=== PATIENT | female | born 1980 | race Two or more races ===

== ENCOUNTER 2019-06-06 03:05 | Emergency (ER) | payer MEDICAID ==
--- NOTE | 2019-06-06 03:29 | ED Physician Chart ---
ED Chief Complaint/HPI - Patient Information Date Seen:: 06/06/19 Time Seen:: 03:44 Chief Complaint:: abdominal pain History of Present Illness:: this is a 39 yo female with epigastric pain, nausea and vomiting that started suddenly this am. she ate a meat and cheese sandwich last night. she denies , Allergies:: Allergies Allergy/AdvReac Type Severity Reaction Status Date / Time No Known Allergies Allergy Verified 06/06/19 03:11 Vitals:: Vital Signs - 8 hr 06/06/19 03:10 Temp 98.2 F HR 72 RR 20 BP 130/78 O2 Sat % 98 Historian:: Patient, Family Member (daughter) Review:: Nurse's Note Reviewed, Old Chart Reviewed ED Review of Systems - Review of Systems General/Constitutional: No fever, No chills, No weight loss, No weakness, No diaphoresis, No edema, No loss of appetite Skin: No skin lesions, No rash, No bruising Head: No headache, No light-headedness Eyes: No loss of vision, No pain, No diplopia ENT: No earache, No nasal drainage, No sore throat, No tinnitus Neck: No neck pain, No swelling, No thyromegaly, No stiffness, No mass noted Cardio Vascular: No chest pain, No palpitations, No PND, No orthopnea, No edema Pulmonary: No SOB, No cough, No sputum, No wheezing GI: Nausea, Vomiting, No diarrhea, Pain (epigastric), No melena, No hematochezia , No constipation, No hematemesis G/U: No dysuria, No frequency, No hematuria Musculoskeletal: No bone or joint pain, No back pain, No muscle pain Endocrine: No polyuria, No polydipsia Psychiatric: No prior psych history, No depression, No anxiety, No suicidal ideation Hematopoietic: No bruising, No lymphadenopathy Allergic/Immuno: No urticaria, No angioedema Neurological: No syncope, No focal symptoms, No weakness, No paresthesia, No headache, No seizure, No dizziness, No confusion, No vertigo ED Past Medical History - Past Medical History Obtainable: No Past Medical History: No significant medical hx Family History: None Social History: Non Smoker, No Alcohol, No Drug Use, Surgical History: (four c-sections) Family Medical History - Family Member Mother History Unknown: Yes Ethnicity: Living Status: Still Living Hx Family Cancer: No Hx Family Coronary Artery Disease: No Hx Family Congestive Heart Failure: No Hx Family Hypertension: No Hx Family Stroke: No Hx Family Diabetes: No Hx Family Seizures: No Hx Family Dementia: No Hx Family AIDS: No Hx Family HIV: No Hx Family COPD: No Hx Family Hepatitis: No Hx Family Psychiatric Problems: No Hx Family Tuberculosis: No ED Physical Exam - Physical Examination General/Constitutional: Awake, Well-developed, well-nourished, Alert, No distress, GCS 15, Non-toxic appearing, Ambulatory Head: Atraumatic Eyes: Lids, conjuctiva normal, PERRL, EOMI Skin: Nl inspection, No rash, No skin lesions, No ecchymosis, Well hydrated, No lymphadenopathy ENMT: External ears, nose nl, Nasal exam nl, Lips, teeth, gums nl Neck: Nontender, Full ROM w/o pain, No JVD, No nuchal rigidity, No bruit, No mass, No stridor Respiratory: Nl effort/Exclusion, Clear to Auscultation, No Wheeze/Rhonchi/Rales Cardio Vascular: RRR, No murmur, gallop, rubs, NL S1 S2 GI: No tenderness/rebounding/guarding (there is tenderness in the upper abdomen) , No organomegaly, No hernia, Normal BS's, Nondistended, No mass/bruits, No McBurney tenderness : No CVA tenderness Extremities: No tenderness or effusion, Full ROM, normal strength in all extremities, No edema, Normal digits & nails Neuro/Psych: Alert/oriented, DTR's symmetric, Normal sensory exam, Normal motor strength, Judgement/insight normal, Mood normal, Normal gait, No focal deficits Misc: Normal back, No paraspinal tenderness ED Assessment - Assessment General Assessment: gastritis gallstones ED Septic Shock - . Is Septic Shock (SBP<90, OR Lactate>4 mmol\L) present?: No - <6hrs of presentation: Vital Signs: Vital Signs - 8 hr 06/06/19 03:10 Temp 98.2 F HR 72 RR 20 BP 130/78 O2 Sat % 98 ED Reassessment (Disposition) - Reassessment Reassessment Condition:: Improved - Diagnosis Diagnosis:: gallstones - Aftercare/Follow up Instructions Aftercare/Follow-Up Instructions:: Counseled pt regarding lab results/diagnosis & need follow up, Refer to Discharge Instructions, Counseled pt & family regarding lab results/diagnosis & need follow up Medication Prescribed:: ethan amado - Patient Disposition Discharge/Transfer:: Home Condition at Disposition:: Improved
[2019-06-06] MEDS ORDERED: Sodium Chloride 0.9% 1,000 ML IV ONE (03:37)
[2019-06-06] MEDS ORDERED: Haloperidol Lactate 5 mg/mL 1mL Vial IVP ONE (03:48)
[2019-06-06 03:51] LABS: URINE SOURCE CLEAN C
[2019-06-06 04:02] LABS: % BASOPHILS 0.4 % (0.0-2.0); % EOSINOPHILS 1.1 % (0.0-5.0); % MONOCYTES 8.7 % (2.0-10.0); % NEUTROPHILS 69.8 % (40.0-80.0); EOSINOPHILE ABSOLUTE 0.1 Th/cmm (0.1-0.4); HEMATOCRIT 36.4 % (41.0-60); HEMOGLOBIN 12.2 gm/dL (12-16); LYMPHOCYTE ABSOLUTE 1.8 Th/cmm (1.5-3.0); MEAN CELL VOLUME 79.2 fl (81-100); MEAN CORPUSCULAR HEMOGLOBIN 26.6 pg (27.0-31.0); MEAN CORPUSCULAR HGB CONC 33.7 pg (28.0-36.0); MONOCYTE ABSOLUTE 0.8 Th/cmm (0.3-1.0); NEUTROPHILE ABSOLUTE 6.5 Th/cmm (1.8-8.0); PLATELET COUNT 293 Th/cmm (150-400); RED BLOOD COUNT 4.59 Mil/cmm (3.80-5.10); WHITE BLOOD COUNT 9.2 Th/cmm (4.8-10.8)
[2019-06-06 04:02] LABS: URINE BILIRUBIN NEGATIVE (NEGATIVE); URINE BLOOD TRACE (NEGATIVE); URINE GLUCOSE (UA) NEGATIVE (NEGATIVE); URINE KETONE NEGATIVE (NEGATIVE); URINE LEUKOCYTE ESTERASE NEGATIVE (NEGATIVE); URINE MICROSCOPIC INDICATED? YES; URINE NITRATE NEGATIVE (NEGATIVE); URINE PH 5.5 (4.6 - 8.0); URINE PROTEIN NEGATIVE (NEGATIVE); URINE UROBILINOGEN 0.2 E.U./dL (0.2 - 1.0)
[2019-06-06 04:23] LABS: URINE CLARITY CLEAR (CLEAR); URINE COLOR YELLOW
[2019-06-06 04:24] LABS: URINE EPITHELIAL CELLS NONE SEEN /lpf (FEW); URINE RBC 0-2 /hpf (0-5); URINE WBC 0-2 /hpf (0-5)
[2019-06-06 04:26] LABS: URINE BACTERIA NONE SEEN /hpf (NONE SEEN)
[2019-06-06 04:27] LABS: AMPHETAMINE URINE NEGATIVE (NEGATIVE); BARBITURATES URINE NEGATIVE (NEGATIVE); BENZODIAZEPINES QUAL URINE NEGATIVE (NEGATIVE); CANNABINOID THC NEGATIVE (NEGATIVE); COCAINE METABOLITE QUAL URINE NEGATIVE (NEGATIVE); METHADONE URINE NEGATIVE (NEGATIVE); METHAMPHETAMINES QUAL URINE NEGATIVE (NEGATIVE); OPIATES (MORPHINE) QUAL. URINE NEGATIVE (NEGATIVE); PHENCYCLIDINE (PCP) URINE NEGATIVE (NEGATIVE); TRICYCLICS (TCA) QUAL. URINE NEGATIVE (NEGATIVE)
[2019-06-06 05:04] LABS: ALB/GLOB RATIO 1.2 (1.0-1.8); ALBUMIN 4.1 gm/dL (3.7-5.3); ALKALINE PHOSPHATASE 67 U/L (34-104); AMYLASE SERUM 58 U/L (29-103); ANION GAP 12.7 (7.0-16.0); BILIRUBIN,TOTAL 0.2 mg/dL (0.3-1.0); BUN - UREA NITROGEN 14 mg/dL (7-25); CARBON DIOXIDE 20.9 mEq/L (21.0-31.0); CHLORIDE 106 mEq/L (98-107); CREATININE - SERUM 0.5 mg/dL (0.6-1.2); GFR AFRICAN-AMERICAN > 60.0 ml/min (>90); GFR NON AFRICAN-AMERICAN > 60.0 ml/min; GLUCOSE 101 mg/dL (70-105); LIPASE 46 U/L (11-82); POTASSIUM SERUM 3.6 mEq/L (3.5-5.1); SGOT 21 U/L (13-39); SGPT/ALT 32 U/L (7-52); SODIUM SERUM 136 mEq/L (136-145); TOTAL PROTEIN,SERUM 7.4 gm/dL (6.0-8.3)
[2019-06-06 06:33] LABS: CALCIUM SERUM 8.6 mg/dL (8.6-10.3)
[2019-06-06] MEDS ORDERED: cefTRIAXone 1 GM in Sodium Chloride 0.9% 50 ML IV ONE (06:40)
--- NOTE | 2019-06-06 10:06 | Diagnostic Imaging Report ---
CT abdomen and pelvis without intravenous contrast Indication: Abdominal pain Comparison: None, Technique: Axial images were obtained from the lung bases to the bilateral proximal femurs without IV contrast. Coronal reconstructions were made. total DLP: 602, CTDI11.4 FINDINGS: Atelectatic changes of the left lung base is noted. Assessment of the solid organs is limited due to lack of IV contrast. No evidence of focal hepatic lesions. There are multiple gallstones. No surrounding inflammatory changes. There also appear to be stones within the cystic duct. No focal splenic, pancreatic, or adrenal lesions. No hydronephrosis. Subcentimeter low-density focus of the right kidney is noted to small to characterize. There is a copious stool greatest in the right: No appendicitis. Mildly prominent uterus is noted. Mild degenerative changes spine are noted. IMPRESSION: Multiple gallstones with stones also noted in the cystic duct. No surrounding inflammatory changes. Recommend clinical correlation and follow-up ultrasound Copious stool greatest in the right colon. Mildly prominent uterus. Ultrasound would further clarify.
== END 2019-06-06 07:18 | disposition home or self-care (01) ==
LOC: ER 03:05
DX: K80.80 Other cholelithiasis without obstruction (principal); Z98.890 Other specified postprocedural states
CPT/HCPCS: 99284; 96365; 96375; 74176; 84484; 36415; 80307; 84443; 85025; 81001; 80320; 82150; 81025; 83690; 80053; J1885; J0696; J7030